=== PATIENT | male | born 1965 | race Caucasian/White ===

== ENCOUNTER 2018-07-31 18:24 | Emergency (ER) | payer BC ==
[2018-07-31 18:31] VITALS: TEMP 98.5
[2018-07-31] MEDS ORDERED: KETOROLAC 30 MG/ML 1 ML VIAL IM STA (18:42)
[2018-07-31] MEDS ORDERED: HYDROcodone/APAP 5-325MG 1 EACH TAB PO STA (18:42)
--- NOTE | 2018-07-31 18:55 | ED ---
Extremity Problem HPI - General Chief complaint: Extremity Problem,Nontraumatic Stated complaint: PAIN IN RT ARM Time Seen by Provider: 07/31/18 18:33 Source: patient Mode of arrival: ambulatory Limitations: no limitations - History of Present Illness Initial comments: 52-year-old male patient presents to the emergency department today for evaluation of right elbow pain. Patient states the pain started 3 hours ago and a drive back home from [place]. Patient states that the pain is intense and located mostly in the elbow however does radiate down to the fingers and up to the shoulder. Patient states the pain worsens significantly with movement of the elbow. He denies any numbness or tingling to the arm. Denies any known injury. [place]. Denies any fevers or chills. Denies any recent illness. Patient denies any recent rash, shortness breath, chest pain, abdominal pain, nausea, vomiting, diarrhea, constipation, back pain, dizziness, weakness, hematuria, dysuria, urinary urgency, urinary frequency, headache, visual changes, or any other complaints. - Related Data Home Medications Medication Instructions Recorded Confirmed Multivitamins, Thera [Multivitamin] 1 tab PO DAILY 05/20/16 07/31/18 amLODIPine [Norvasc] 10 mg PO DAILY 05/20/16 07/31/18 Aspirin EC [Ecotrin Low Dose] 81 mg PO DAILY PRN 07/31/18 07/31/18 Previous Rx's Medication Instructions Recorded Ibuprofen [Motrin] 600 mg PO Q8HR PRN #30 tab 07/31/18 Allergies Allergy/AdvReac Type Severity Reaction Status Date / Time No Known Allergies Allergy Verified 07/31/18 18:43 Review of Systems ROS Statement: Those systems with pertinent positive or pertinent negative responses have been documented in the HPI. ROS Other: All systems not noted in ROS Statement are negative. Past Medical History Past Medical History: Coronary Artery Disease (CAD), Hypertension History of Any Multi-Drug Resistant Organisms: None Reported Past Surgical History: Hernia Repair Past Psychological History: No Psychological Hx Reported Smoking Status: Never smoker Past Alcohol Use History: Daily Past Drug Use History: None Reported General Exam Limitations: no limitations General appearance: alert, in no apparent distress, other (This is a well- developed, well-nourished adult male patient in no acute distress. Vital signs upon presentation are temperature 98.5F, pulse 84, respirations 18, blood pressure 173/85, pulse ox 96% on room air.) Eye exam: Present: normal appearance, PERRL, EOMI. Absent: scleral icterus, conjunctival injection, periorbital swelling ENT exam: Present: normal exam, normal oropharynx, mucous membranes moist Respiratory exam: Present: normal lung sounds bilaterally. Absent: respiratory distress, wheezes, rales, rhonchi, stridor Cardiovascular Exam: Present: regular rate, normal rhythm, normal heart sounds. Absent: systolic murmur, diastolic murmur, rubs, gallop, clicks Extremities exam: Present: tenderness (Right posterior elbow tenderness), normal capillary refill, other (No erythema noted. Radial pulses 2+ and equal bilaterally. Cap refills less than 3 seconds. Skin is pink, warm, dry.). Absent: normal inspection, full ROM (Patient unable to fully extend the right arm at the elbow), pedal edema, joint swelling, calf tenderness Neurological exam: Present: alert, oriented X3, CN II-XII intact Psychiatric exam: Present: normal affect, normal mood Skin exam: Present: warm, dry, intact, normal color. Absent: rash Course Vital Signs 07/31/18 07/31/18 18:26 20:59 Temperature 98.5 F Pulse Rate 84 85 Respiratory 18 16 Rate Blood Pressure 173/85 140/85 O2 Sat by Pulse 96 95 Oximetry Procedures - Orthopedic Splinting/Casting Injury #1 Side: right Upper Extremity Injury Location: long arm, elbow Upper Extremity Immobilizer: posterior splint, Artur wrap Additional Comments: neurovascular status intact after splint application. Skin to the hand is pink , warm, dry. Cap refills less than 3 seconds. Radial pulses 2+ and equal bilaterally. Medical Decision Making - Medical Decision Making 52-year-old male patient presents to the emergency department today for evaluation of right elbow pain started approximately 3 hours ago. Patient reported radicular type pain extending from the elbow to the shoulder and down to the hand. Neurovascular status is intact. There is mild swelling but no erythema. There is some mild joint tenderness. X-ray was obtained and showed no acute abnormalities. Patient is unable to fully extend the elbow. He is afebrile vital signs are stable. He requested EKG, this did show left bundle branch block which is not a new finding for this patient. I did place the patient in a long-arm OCL splint for comfort and support. He'll be discharged to follow-up with orthopedics for further evaluation. There is concern for bursitis I did start anti-inflammatory medication. Return parameters were discussed in detail. He verbalizes understanding and agrees with this plan. - EKG Data -: EKG Interpreted by Me EKG Comments: EKG obtained in 194 shows normal sinus rhythm with a left bundle branch block. Ventricular rate is 81, VT interval 172, QRS duration 132. QT 394, QTC 457. There are no previous EKGs on file to compare, however patient does report a history of left bundle branch block. - Radiology Data Radiology results: report reviewed, image reviewed 3 views of the elbow are obtained. Report was reviewed in its entirety. Impression by Dr. Gee shows normal 3 view right elbow. Disposition Clinical Impression: Right elbow pain, Bursitis Disposition: HOME SELF-CARE Condition: Good Instructions (If sedation given, give patient instructions): Elbow Bursitis (ED ) Additional Instructions: Keep splint in place until follow-up with orthopedics. Take medication as directed. Follow-up with orthopedics for recheck as soon as possible. Return to the emergency department immediately for any new, worsening, or concerning symptoms Prescriptions: Ibuprofen [Motrin] 600 mg PO Q8HR PRN #30 tab PRN Reason: Pain Is patient prescribed a controlled substance at d/c from ED?: No Referrals: Jamar Hamilton MD [Primary Care Provider] - 1-2 days Blade Patel DO [Doctor of Osteopathic Medicine] - 1-2 days Time of Disposition: 20:48
[2018-07-31] MEDS ORDERED: FAMOTIDINE 20 MG TAB PO STA (19:31)
--- NOTE | 2018-07-31 20:10 | XR ---
EXAMINATION TYPE: XR elbow complete RT DATE OF EXAM: 07/31/2018 COMPARISON: None HISTORY: Right elbow pain TECHNIQUE: Three-view right elbow FINDINGS: Radius aligns normally with the humerus. No acute fractures are evident. No elevation of th e anterior fat pad is evident. No elevation of posterior fat pad is evident. Follow-up exams can be performed 7-10 days from acute trauma for continued pain. IMPRESSION: 1. Normal three-view right elbow
[2018-07-31] MEDS ORDERED: ACET/COD 300 MG/30 MG STARTER PACK 6 TAB BTL PO STA (20:54)
[2018-07-31 21:01] VITALS: BP 140/85; PULSE 85; RESP 16
== END 2018-07-31 20:59 | disposition home or self-care (01) ==
LOC: EC 18:24
DX: M71.521 Other bursitis, not elsewhere classified, right elbow (principal); I44.7 Left bundle-branch block, unspecified; I25.10 Atherosclerotic heart disease of native coronary artery without angina pectoris; I10 Essential (primary) hypertension; Z79.899 Other long term (current) drug therapy
CPT/HCPCS: 93005; 73080; 99283; 29105; 96372; J1885

== ENCOUNTER → 2020-05-20 | Outpatient (CLI) | payer BC ==
--- NOTE | 2020-05-20 14:54 | MR ---
EXAMINATION TYPE: MR knee LT wo con DATE OF EXAM: 05/20/2020 COMPARISON: Radiograph 04/23/2020 HISTORY: 54-year-old male M25.562, left knee pain TECHNIQUE: Multiplanar, multisequence imaging of the left knee is performed without IV contrast. FINDINGS: The ACL, PCL, MCL, and LCL complex are intact. There is an oblique tear involving the posterior horn and body of the medial meniscus. Moderate focal irregular cartilage loss involving the mid weightbearing aspect of the medial femoral condyle (measu ring 1.0 cm wide and 0.8 cm AP) with underlying degenerative subchondral signal change. The lateral meniscus is intact. Overall lateral compartment articular cartilage volume is maintained. Moderate to severe, full-thickness cartilage loss along the superior half of the mid patella and mode rate irregular cartilage loss along the medial patellar facet. Physiologic joint fluid. Small elongated Jean Baptiste's cyst is noted extending superiorly measuring up to 3 .9 cm long. Extensor mechanism is intact. Nonspecific mild anterior soft tissue swelling. Trace effusion within t he deep infrapatellar bursa. Normal popliteal artery anatomy and muscle bulk. No suspicious bone marrow replacement. IMPRESSION: 1. Oblique tear involving the posterior horn and body of the medial meniscus. 2. Moderate focal irregular cartilage loss involving the mid weightbearing aspect of the medial femor al condyle (10 x 8 mm). 3. Moderate overall patellofemoral compartment osteoarthrosis with areas of high-grade cartilage loss along the superior half of the mid patella. 4. Small Jean Baptiste's cyst tracking superiorly.
== END | disposition home or self-care (01) ==
LOC: RADMRIMAIN 11:07
PROVIDERS: ATTEND Orthopaedic Surgery
DX: S83.242A Other tear of medial meniscus, current injury, left knee, initial encounter (principal); M17.12 Unilateral primary osteoarthritis, left knee; M25.862 Other specified joint disorders, left knee; M71.22 Synovial cyst of popliteal space [Baker], left knee

== ENCOUNTER → 2020-08-19 | Outpatient (CLI) | payer BC ==
[2020-08-19 14:36] LABS: Basophils % (A) 1 %; Eosinophils # (A) 0.2 k/uL (0-0.7); Eosinophils % (A) 3 %; HCT 45.3 % (39.0-53.0); HGB 15.6 gm/dL (13.0-17.5); Lymphocytes # (A) 2.8 k/uL (1.0-4.8); Lymphocytes % (A) 35 %; MCH 31.5 pg (25.0-35.0); MCHC 34.3 g/dL (31.0-37.0); MCV 91.9 fL (80.0-100.0); Monocytes # (A) 0.5 k/uL (0-1.0); Monocytes % (A) 6 %; Neutrophils # (A) 4.4 k/uL (1.3-7.7); Neutrophils % (A) 54 %; Platelet Count 312 k/uL (150-450); RBC 4.94 m/uL (4.30-5.90); RDW 12.3 % (11.5-15.5)
[2020-08-19 14:46] LABS: Potassium 4.5 mmol/L (3.5-5.1)
== END ==
LOC: LABPAT 13:50
PROVIDERS: ATTEND Orthopaedic Surgery
DX: Z01.812 Encounter for preprocedural laboratory examination (principal); M23.92 Unspecified internal derangement of left knee
CPT/HCPCS: 36415; 80051; 85025; 93005

== ENCOUNTER 2020-08-29 06:19 | Day surgery (SDC) | payer BC ==
[2020-08-22 15:25] VITALS: BMI 29.5
--- NOTE | 2020-08-28 18:16 | HP ---
HISTORY AND PHYSICAL DATE OF SURGERY: 08/29/2020 Jose Antonio Day is a 54-year-old gentleman seen with progressive left knee pain. Options were discussed. He elected to proceed with arthroscopy. Consent was obtained. PAST MEDICAL HISTORY: Hypertension. PAST SURGICAL HISTORY: Knee arthroscopy. DAILY MEDICATIONS: Amlodipine. ALLERGIES: NONE. SOCIAL HISTORY: He denies tobacco use. PHYSICAL EVALUATION OF THE LEFT KNEE: Range of motion zero to 130. Mild effusion. Tenderness, medial joint line. Positive medial Elaina's. Ligaments stable. Hip rotation without pain. Distal neurovascular exam intact. RADIOGRAPHS: Left knee radiographs reveal mild osteoarthritis. MRI of left knee revealed medial meniscal tear and osteoarthritis. IMPRESSION: 1. Internal derangement of left knee with medial meniscal tear. 2. Left knee osteoarthritis. 3. Hypertension. PLAN: Left knee arthroscopy with partial meniscectomy and debridement. MMODL / IJN: [id number] /
[~2020-08-29 06:19] MED LIST: DEXAMETHASONE SOD PHOSPHATE 4 MG/ML 1 ML VIAL IV ONE; LACTATED RINGERS 1,000 ML IV SCH; LIDOCAINE 1% (10MG/ML) FOR IV START INTRADERMA PRN; ONDANSETRON 4 MG/2 ML VIAL IVP ONE
[2020-08-29] MEDS ORDERED: ONDANSETRON 4 MG/2 ML VIAL ONE (06:59)
[2020-08-29] MEDS ORDERED: SCOPOLAMINE 1.5MG/72HR PATCH TRANSDERM ONE (07:10)
[2020-08-29] MEDS ORDERED: PROPOFOL 10 MG/ML 20 ML VIAL IV ONE (07:23)
[2020-08-29] MEDS ORDERED: MIDAZOLAM 2 MG/2 ML VIAL ONE (07:23)
[2020-08-29] MEDS ORDERED: LIDOCAINE 1% INJ 10MG/ML (20 ML MDV) ONE (07:23)
[2020-08-29] MEDS ORDERED: fentaNYL (PF) 50 MCG/ML 2 ML AMP ONE (07:23)
[2020-08-29] MEDS ORDERED: KETOROLAC 15 MG/ML 1 ML VIAL ONE (07:23)
[2020-08-29] MEDS ORDERED: BUPIVACAINE (PF) 0.25% 30 ML VIAL SQ ONE ×2 (07:45→07:59)
[2020-08-29] MEDS ORDERED: HYDROmorphone 0.5 MG/0.5 ML SYRINGE IVP ONE ×2 (08:15→08:25)
--- NOTE | 2020-08-29 08:16 | P.OP ---
Date of Procedure: 08/29/20 Preoperative Diagnosis: Internal derangement left Postoperative Diagnosis: 1. Tear medial meniscus left knee 2. Grade 2 chondromalacia medial femoral condyle left knee 3. Reactive synovitis medial, lateral and suprapatellar compartments left knee Procedure(s) Performed: 1. Arthroscopic partial medial meniscectomy left knee 2. Arthroscopic chondroplasty medial femoral condyle left knee 3. Arthroscopic partial synovectomy medial, lateral and suprapatellar compartments left knee Anesthesia: ARMANDOA, local Surgeon: Blade Patel Estimated Blood Loss (ml): 7 Pathology: none sent Condition: stable Disposition: PACU Indications for Procedure: 54-year-old patient seen with progressive left knee pain. After having treatment options discussed, he elected to proceed with arthroscopy. Operative Findings: See description of procedure Description of Procedure: Patient was taken to the operative suite. Patient underwent a general anesthetic by the department of anesthesia. Patient was given preoperative antibiotics. The left lower extremity was placed in a well-padded arthroscopic leg loza. The left leg was prepped and draped in the normal sterile orthopedic fashion. A lateral parapatellar and suprapatellar incision was made. Trochars were inserted. Arthroscopy was initiated. Suprapatellar pouch revealed diffuse thick reactive synovitis. The patellofemoral joint appeared to articulate congruently. There was no chondromalacia present. The scope was guided into the medial gutter. No loose bodies or plica were identified. The scope was then guided into the medial compartment. A medial parapatellar incision was made. Trocar inserted followed by probe. There was a complex tear posterior horn medial meniscus which extended into the midbody area. There were grade 2 chondral malacia changes medial femoral condyle with some small osteochondral flap tears present. There was thick reactive synovitis anteriorly. I performed a partial medial meniscectomy getting down to stable meniscal tissue. I performed a chondroplasty of the medial femoral condyle getting down to stable osteochondral tissue. I performed a partial synovectomy decompressing the thick reactive synovitis. The residual meniscus was stable. The residual osteochondral surface was stable. There was good decompression of the synovitis. Scope and probe were then guided into the intercondylar notch. Cruciates were identified, probed and found to be stable. The scope and probe were then guided into lateral compartment. Lateral meniscus was probed and found to be stable. There was no significant chondromalacia present. There was some reactive synovitis anteriorly. I introduced a motorized shaver and performed a partial synovectomy. Shaver was removed. There was good decompression of the synovitis. The scope was in guided back into the suprapatellar compartment. I introduced a motorized shaver into the suprapatellar compartment. I debrided some piecemeal fragments of meniscus I encountered. I performed a partial synovectomy decompressing the reactive synovitis. The shaver was removed. There was good decompression of the synovitis. Instruments were now removed from the joint. The joint was infiltrated with .25% Marcaine. Steri-Strips were applied to the portal sites. Sterile dressings were applied. The patient was placed into a KATHI hose. No tourniquet was utilized. The patient was awakened, transferred to a bed and taken to recovery stable satisfactory condition.
[2020-08-29 08:19] VITALS: TEMP 98.5
[2020-08-29] MEDS ORDERED: HYDROcodone/APAP 5-325MG 1 EACH TAB PO ONE (09:02)
[2020-08-29 09:03] VITALS: RESP 20
[2020-08-29] MEDS ORDERED: HYDROcodone/APAP 5-325MG 1 EACH TAB ONE (09:03)
[2020-08-29 09:48] VITALS: BP 133/74; PULSE 68
== END 2020-08-29 10:03 | disposition home or self-care (01) ==
LOC: OR 06:19
PROVIDERS: ATTEND Orthopaedic Surgery
DX: S83.232A Complex tear of medial meniscus, current injury, left knee, initial encounter (principal); M94.262 Chondromalacia, left knee; M65.862 Other synovitis and tenosynovitis, left lower leg; M17.12 Unilateral primary osteoarthritis, left knee; I10 Essential (primary) hypertension; Z79.899 Other long term (current) drug therapy; X58.XXXA Exposure to other specified factors, initial encounter
CPT/HCPCS: 29881; 29876; J2250; J1100; J0690; J2405; J2001; J3010; J1885; J2704; J1170

== ENCOUNTER → 2022-03-10 | Outpatient (CLI) | payer BC ==
--- NOTE | 2022-03-10 10:24 | CA ---
Exercise Stress Test Report Name: Jose Antonio Day Exam Date: 03/10/2022 09:02 Exam Location: [facility] Ht (in): 66 Wt (lb): 180 BSA: 1.91 Ordering Phys: Maria E Ruiz MD Referring Phys: Martha Bloom Technologist: August Diggs Age: 56 Gender: M : 1965 Procedure CPT: Indications: I44.7 LEFT BUNDLE-BRANCH BLOCK, UNSPECIFIED ICD-10 Codes: Patient History: Medications: AMLODIPINE Meds past 24 hrs: Pretest Chest Pain: STRESS TEST Dominic Protocol Exercise Duration (min:sec): 12:[address] Depressions (mm): Angina Score: Meraz Score: Resting HR (bpm): 62 Peak HR (bpm): 161 Resting BP (mmHg): 138 / 76 Peak BP (mmHg): 216 / 114 MPHR: 163 Target HR: 139 % MPHR: 99 METS: 13.0 Total Dose: Peak Dose: Atropine: Double Product: 74003 BP Response: Stress Termination: Reached target heart rate Stress Symptoms: NO SYMPTOMS Stress Summary: ECG ANALYSIS Resting ECG: Normal sinus rhythm with left bundle branch block Stress ECG: Patient exercised on Dominic protocol for a total of 12 and half minutes achieving 14 METs 85% of predicted maximal heart rate without chest pain or diagnostic ST segment depression CONCLUSIONS Excellent exercise tolerance Inconclusive stress test secondary to left bundle branch block Dr. Gabriel Munson MD (Electronically Signed) Final Date: 10 March 2022 10:23
== END | disposition home or self-care (01) ==
LOC: RADNMMAIN 08:28
PROVIDERS: ATTEND Family Medicine
DX: I44.7 Left bundle-branch block, unspecified (principal); R94.31 Abnormal electrocardiogram [ECG] [EKG]; Z68.30 Body mass index [BMI] 30.0-30.9, adult
CPT/HCPCS: 93017

== ENCOUNTER 2023-07-08 22:18 | Emergency (ER) | payer OTHER ==
--- NOTE | 2023-07-08 23:02 | ED ---
Abdominal Pain HPI - General Chief Complaint: Recheck/Abnormal Lab/Rx Stated Complaint: Abdominal Pain Time Seen by Provider: 07/08/23 23:01 Source: patient Mode of arrival: ambulatory Limitations: no limitations - History of Present Illness Initial Comments: 57-year-old male presented to the ED with a chief complaint of abdominal pain. Patient states 2 days ago, onset of left lower abdominal pain. Since then, patient notes he has not been able to have a full bowel movement either. No nausea or vomiting. No chest pain shortness of breath. No changes in urinary habits. No fever or chills. No other complaints. - Related Data Home Medications Medication Instructions Recorded Confirmed Multivitamins, Thera [Multivitamin] 1 tab PO DAILY 05/20/16 08/29/20 amLODIPine [Norvasc] 10 mg PO DAILY 05/20/16 08/29/20 Ascorbic Acid [Vitamin C] 500 mg PO DAILY 08/22/20 08/29/20 Cholecalciferol [Vitamin D3 (25 25 mcg PO DAILY 08/22/20 08/29/20 Mcg = 1000 Iu)] Thiamine [Vitamin B-1] 50 mg PO DAILY 08/22/20 08/29/20 Previous Rx's Medication Instructions Recorded HYDROcodone/APAP 5-325MG [[place] 1 tab PO Q6HR PRN 7 Days #28 tab 08/29/20 5-325] Amoxic-Pot Clav 875-125Mg 1 tab PO Q12HR 7 Days #14 tab 07/09/23 [Augmentin 875-125] Allergies Allergy/AdvReac Type Severity Reaction Status Date / Time No Known Allergies Allergy Verified 07/08/23 22:30 Review of Systems ROS Statement: Those systems with pertinent positive or pertinent negative responses have been documented in the HPI. ROS Other: All systems not noted in ROS Statement are negative. Past Medical History Past Medical History: Coronary Artery Disease (CAD), Hypertension History of Any Multi-Drug Resistant Organisms: None Reported Past Surgical History: Hernia Repair Past Psychological History: No Psychological Hx Reported Smoking Status: Never smoker Past Alcohol Use History: Daily Past Drug Use History: None Reported General Exam Limitations: no limitations General appearance: alert, in no apparent distress Neck exam: Present: normal inspection Respiratory exam: Present: normal lung sounds bilaterally Cardiovascular Exam: Present: regular rate, normal rhythm GI/Abdominal exam: Present: soft (TTP in the LLQ. No rebound guarding or rigidity.) Neurological exam: Present: alert, oriented X3 Skin exam: Present: warm, dry Course Vital Signs 07/08/23 07/08/23 07/09/23 22:24 23:00 00:00 Temperature 98.4 F Pulse Rate 102 H 72 73 Respiratory 20 18 18 Rate Blood Pressure 155/88 179/92 176/92 O2 Sat by Pulse 97 98 95 Oximetry 07/09/23 01:13 Temperature Pulse Rate 78 Respiratory 18 Rate Blood Pressure 139/69 O2 Sat by Pulse 98 Oximetry Medical Decision Making - Medical Decision Making Was pt. sent in by a medical professional or institution (, PA, WHOLESALE ACCOUNT EXECUTIVE, urgent care, hospital, or [place] health care facility...) When possible be specific @ -No Did you speak to anyone other than the patient for history (EMS, parent, family, police, friend...)? What history was obtained from this source @ -No Did you review nursing and triage notes (agree or disagree)? Why? @ -I reviewed and agree with nursing and triage notes Were old charts reviewed (outside hosp., previous admission, EMS record, old EKG, old radiological studies, urgent care reports/EKG's, [place] health care facility records)? Report findings @ -No old charts were reviewed Differential Diagnosis (chest pain, altered mental status, abdominal pain women, abdominal pain men, vaginal bleeding, weakness, fever, dyspnea, syncope, headac he, dizziness, GI bleed, back pain, seizure, CVA, palpatations, mental health, musculoskeletal)? @ -Differential Musculoskeletal Muscular strain, contusion, ligament sprain, fracture, arthritis, septic arthritis, bursitis, cellulitis, muscle spasm, nerve compression, DVT, arterial occlusion, herpes zoster, electrolyte abnormality, tumor.... This is not meant to be in all inclusive list EKG interpreted by me (3pts min.). @ -None X-rays interpreted by me (1pt min.). @ -None done CT interpreted by me (1pt min.). @ -CT abdomen and pelvis interpreted by me showing evidence of diverticulitis. U/S interpreted by me (1pt. min.). @ -None done What testing was considered but not performed or refused? (CT, X-rays, U/S, labs)? Why? @ -None What meds were considered but not given or refused? Why? @ -None Did you discuss the management of the patient with other professionals (professionals i.e. , PA, WHOLESALE ACCOUNT EXECUTIVE, lab, RT, psych nurse, manager social media, emergency room tech, teacher, loan officer assistant, caseworker intake)? Give summary @ -No Was smoking cessation discussed for >3mins.? @ -No Was critical care preformed (if so, how long)? @ -No Were there social determinants of health that impacted care today? How? (Homelessness, low income, unemployed, alcoholism, drug addiction, transportation, low edu. Level, literacy, decrease access to med. care, residential, rehab)? @ -No Was there de-escalation of care discussed even if they declined (Discuss DNR or withdrawal of care, Hospice)? DNR status @ -No What co-morbidities impacted this encounter? (DM, HTN, Smoking, COPD, CAD, Cancer, CVA, ARF, Chemo, Hep., AIDS, mental health diagnosis, sleep apnea, morbid obesity)? @ -None Was patient admitted / discharged? Hospital course, mention meds given and route, prescriptions, significant lab abnormalities, going to OR and other pertinent info. @ -Discharge 57-year-old male presenting to the ED with a few days of left lower quadrant pain. No other symptoms at this time.Laboratory studies reviewed. Labs show a CBC of 13.3. Chemistry panel unremarkable. UA shows no evidence of infection. Computed tomography scan does show evidence of diverticulitis however no evidence of abscess formation or phlegmon. He'll be discharged home with prescription for antibiotics. Provided dose of Augmentin here in the ED. Provided referral to see GI. Discussed return precautions with patient and who verbalizes agreement. Undiagnosed new problem with uncertain prognosis? @ -No Drug Therapy requiring intensive monitoring for toxicity (Heparin, Nitro, Insulin, Cardizem)? @ -No Were any procedures done? @ -No Diagnosis/symptom? @ -Diverticulitis Acute, or Chronic, or Acute on Chronic? @ -Acute Uncomplicated (without systemic symptoms) or Complicated (systemic symptoms)? @ -Uncomplicated Side effects of treatment? @ -No Exacerbation, Progression, or Severe Exacerbation? @ -No Poses a threat to life or bodily function? How? (Chest pain, [place], [place], pneumonia, PE, COPD, DKA, ARF, appy, cholecystitis, CVA, Diverticulitis, Homicidal, Suicidal, threat to staff... and all critical care pts) @ -No - Lab Data Result diagrams: 07/08/23 23:21 07/08/23 23:21 Lab Results 07/08/23 07/08/23 07/08/23 Range/Units 23:21 23:21 23:59 WBC 13.3 H (3.8-10.6) k/uL RBC 4.67 (4.30-5.90) m/uL Hgb 14.8 (13.0-17.5) gm/dL Hct 42.1 (39.0-53.0) % MCV 90.1 (80.0-100.0) fL MCH 31.8 (25.0-35.0) pg MCHC 35.3 (31.0-37.0) g/dL RDW 13.0 (11.5-15.5) % Plt Count 262 (150-450) k/uL MPV 7.6 Neutrophils % 79 % Lymphocytes % 12 % Monocytes % 7 % Eosinophils % 1 % Basophils % 0 % Neutrophils # 10.5 H (1.3-7.7) k/uL Lymphocytes # 1.5 (1.0-4.8) k/uL Monocytes # 0.9 (0-1.0) k/uL Eosinophils # 0.1 (0-0.7) k/uL Basophils # 0.0 (0-0.2) k/uL Sodium 135 L (137-145) mmol/L Potassium 4.2 (3.5-5.1) mmol/L Chloride 103 (98-107) mmol/L Carbon Dioxide 25 (22-30) mmol/L Anion Gap 7 mmol/L BUN 13 (9-20) mg/dL Creatinine 0.69 (0.66-1.25) mg/dL Est GFR (CKD-EPI)AfAm >90 (>60 ml/min/1.73 sqM) Est GFR (CKD-EPI)NonAf >90 (>60 ml/min/1.73 sqM) Glucose 116 H (74-99) mg/dL Calcium 9.5 (8.4-10.2) mg/dL Total Bilirubin 0.8 (0.2-1.3) mg/dL AST 21 (17-59) U/L ALT 22 (4-49) U/L Alkaline Phosphatase 85 (38-126) U/L Total Protein 7.3 (6.3-8.2) g/dL Albumin 4.5 (3.5-5.0) g/dL Amylase 61 (30-110) U/L Lipase 39 (23-300) U/L Urine Color Colorless Urine Appearance Clear (Clear) Urine pH 6.0 (5.0-8.0) Ur Specific [place] 1.015 (1.001-1.035) Urine Protein Negative (Negative) Urine Glucose (UA) Negative (Negative) Urine Ketones Negative (Negative) Urine Blood Negative (Negative) Urine Nitrite Negative (Negative) Urine Bilirubin Negative (Negative) Urine Urobilinogen <2.0 (<2.0) mg/dL Ur Leukocyte Esterase Negative (Negative) Disposition Clinical Impression: Diverticulitis Disposition: HOME SELF-CARE Condition: Good Instructions (If sedation given, give patient instructions): Diverticulitis (ED), Diverticulitis Diet (ED), Diverticulosis (ED) Additional Instructions: Please return to the Emergency Department if symptoms worsen or any other concerns. Please follow up with your PCP. Prescriptions: Amoxic-Pot Clav 875-125Mg [Augmentin 875-125] 1 tab PO Q12HR 7 Days #14 tab Is patient prescribed a controlled substance at d/c from ED?: No Referrals: Maria E Ruiz MD [Primary Care Provider] - 1-2 days Janice uMnson MD [STAFF PHYSICIAN] - 1-2 days Time of Disposition: 02:49
[2023-07-08] MEDS ORDERED: SODIUM CHLORIDE 0.9% 500 ML 500 ML IV STA (23:03)
[2023-07-08] MEDS ORDERED: KETOROLAC 15 MG/ML 1 ML VIAL IVP STA (23:22)
[2023-07-08 23:25] LABS: Basophils % (A) 0 %; Eosinophils # (A) 0.1 k/uL (0-0.7); Eosinophils % (A) 1 %; HCT 42.1 % (39.0-53.0); HGB 14.8 gm/dL (13.0-17.5); Lymphocytes # (A) 1.5 k/uL (1.0-4.8); Lymphocytes % (A) 12 %; MCH 31.8 pg (25.0-35.0); MCHC 35.3 g/dL (31.0-37.0); MCV 90.1 fL (80.0-100.0); Mean Platelet Volume 7.6; Monocytes # (A) 0.9 k/uL (0-1.0); Monocytes % (A) 7 %; Neutrophils # (A) 10.5 k/uL (1.3-7.7); Neutrophils % (A) 79 %; Platelet Count 262 k/uL (150-450); RBC 4.67 m/uL (4.30-5.90); WBC 13.3 k/uL (3.8-10.6)
[2023-07-08 23:51] VITALS: RESP 18
[2023-07-09] LABS: ALT 22 U/L (4-49); AST 21 U/L (17-59); African American GFR (CKD) >90 (>60 ml/min/1.73 sqM); Albumin 4.5 g/dL (3.5-5.0); Alkaline Phosphatase 85 U/L (38-126); Amylase 61 U/L (30-110); Anion Gap 7 mmol/L; Blood Urea Nitrogen 13 mg/dL (9-20); Calcium 9.5 mg/dL (8.4-10.2); Carbon Dioxide 25 mmol/L (22-30); Chloride 103 mmol/L (98-107); Glucose 116 mg/dL (74-99); Lipase 39 U/L (23-300); Non-African American GFR(CKD) >90 (>60 ml/min/1.73 sqM); Potassium 4.2 mmol/L (3.5-5.1); Sodium 135 mmol/L (137-145); Total Bilirubin 0.8 mg/dL (0.2-1.3); Total Protein 7.3 g/dL (6.3-8.2)
[2023-07-09 00:48] LABS: Appearance,Urine Clear (Clear); Bilirubin,Urine Negative (Negative); Blood,Urine Negative (Negative); Color,Urine Colorless; Glucose,Urine (UA) Negative (Negative); Ketones,Urine Negative (Negative); Leukocyte Esterase,Urine Negative (Negative); Nitrite,Urine Negative (Negative); Protein,Urine Negative (Negative); Specific Gravity,Urine 1.015 (1.001-1.035); Urobilinogen,Urine <2.0 mg/dL (<2.0)
--- NOTE | 2023-07-09 02:26 | CT ---
EXAM: CT Abdomen and Pelvis With Intravenous Contrast CLINICAL HISTORY: LLQ pain TECHNIQUE: Axial computed tomography images of the abdomen and pelvis with intravenous contrast. CTDI is 22 mGy and DLP is 1110 mGy-cm. This CT exam was performed using one or more of the following dose reduction techniques: automated exposure control, adjustment of the mA and/or kV according to patient size, and/or use of iterative reconstruction technique. COMPARISON: No relevant prior studies available. FINDINGS: Lung bases: Normal dependent atelectasis. ABDOMEN: Liver: Unremarkable. No mass. Gallbladder and bile ducts: Unremarkable. No calcified stones. No ductal dilation. Pancreas: Unremarkable. No mass. No ductal dilation. Spleen: Unremarkable. No splenomegaly. Adrenals: Unremarkable. No mass. Kidneys and ureters: Unremarkable. No solid mass. No hydronephrosis. Stomach and bowel: Fat-containing left inguinal hernia. No obstruction or ileus. Distal left and sigmoid colon diverticulosis with wall thickening and surrounding infiltration consistent with acute diverticulitis. No associated focal abscess or free intraperitoneal gas. No free fluid. PELVIS: Appendix: No findings to suggest acute appendicitis. Bladder: Partially contracted with nonspecific wall thickening. Partial herniation of the urinary bladder into the left inguinal canal. No mass. Reproductive: Unremarkable as visualized. ABDOMEN and PELVIS: Bones/joints: No acute fracture. Soft tissues: Unremarkable. Vasculature: Atherosclerotic vascular calcifications. No abdominal aortic aneurysm. Lymph nodes: Unremarkable. No enlarged lymph nodes. IMPRESSION: Distal left and sigmoid colon diverticulosis with wall thickening and surrounding infiltration consistent with acute diverticulitis. Partially contracted with nonspecific wall thickening. Partial herniation of the urinary bladder into the left inguinal canal.
[2023-07-09] MEDS ORDERED: AMOXIC-POT CLAV 875-125MG 1 EACH TAB PO STA (02:35)
[2023-07-09] MEDS ORDERED: MORPHINE SULFATE 4 MG/ML SYRINGE IVP STA (02:59)
[2023-07-09 03:19] VITALS: BP 148/75; PULSE 76; TEMP 98.6
== END 2023-07-09 03:16 | disposition home or self-care (01) ==
LOC: EC 22:18
DX: K57.32 Diverticulitis of large intestine without perforation or abscess without bleeding (principal); I10 Essential (primary) hypertension; I25.10 Atherosclerotic heart disease of native coronary artery without angina pectoris; Z79.899 Other long term (current) drug therapy
CPT/HCPCS: 80053; 82150; 83690; 85025; 99284; 96374; 96375; 96361; J1885; 36415; 74177; 81003

== ENCOUNTER → 2024-09-06 | Outpatient (CLI) | payer OTHER ==
[2024-09-06 16:00] LABS: Basophils # (A) 0.07 X 10*3/uL (0.00-0.10); Basophils % (A) 0.6 %; Eosinophils # (A) 0.13 X 10*3/uL (0.04-0.35); Eosinophils % (A) 1.2 %; HGB 15.6 g/dL (13.0-17.0); Lymphocytes # (A) 2.66 X 10*3/uL (0.90-5.00); Lymphocytes % (A) 23.6 %; MCH 30.7 pg (27.0-32.0); MCHC 33.9 g/dL (32.0-37.0); MCV 90.6 FL (80.0-97.0); Mean Platelet Volume 9.5 FL (9.5-12.2); Monocytes # (A) 0.79 X 10*3/uL (0.20-1.00); NRBC Per 100 WBC 0 X 10*3/uL (0.00-0.01); Neutrophils # (A) 7.58 X 10*3/uL (1.80-7.70); Neutrophils % (A) 67.2 %; Platelet Count 345 X 10*3/uL (140-440); RBC 5.08 X 10*6/uL (4.40-5.60); RDW 12.7 % (11.5-14.5); WBC 11.27 X 10*3/uL (4.50-10.00)
== END | disposition home or self-care (01) ==
LOC: LABPAT 11:43
PROVIDERS: ATTEND Surgery
DX: Z01.818 Encounter for other preprocedural examination (principal)
CPT/HCPCS: 85025; 93005

== ENCOUNTER → 2024-09-18 | Outpatient (CLI) | payer OTHER | END | disposition home or self-care (01) | LOC: LABPAT 11:25 | PROVIDERS: ATTEND Surgery | DX: Z01.812 Encounter for preprocedural laboratory examination (principal); K40.90 Unilateral inguinal hernia, without obstruction or gangrene, not specified as recurrent | CPT/HCPCS: 86850; 86900; 86901 ==

== ENCOUNTER 2024-09-22 06:11 | Day surgery (SDC) | payer OTHER ==
[2024-09-18 10:28] VITALS: BMI 31.1
[~2024-09-22 06:11] MED LIST changes: -DEXAMETHASONE SOD PHOSPHATE 4 MG/ML 1 ML VIAL IV ONE; -LACTATED RINGERS 1,000 ML IV SCH; +MIDAZOLAM 2 MG/2 ML VIAL IV PRN; -ONDANSETRON 4 MG/2 ML VIAL IVP ONE; +fentaNYL (PF) 50 MCG/ML 2 ML AMP IVP PRN
[2024-09-22 06:57] VITALS: RESP 16
[2024-09-22] MEDS: IV FLUID CONTINUATION 1,000 ML IV ONE (06:57)
[2024-09-22] MEDS: LACTATED RINGERS 1,000 ML IV SCH (06:57)
[2024-09-22] MEDS: ONDANSETRON 4 MG/2 ML VIAL IVP ONE (07:01)
[2024-09-22] MEDS: DEXAMETHASONE SOD PHOSPHATE 4 MG/ML 1 ML VIAL IV ONE (07:01)
[2024-09-22] MEDS: ACETAMINOPHEN TAB 500 MG TAB PO PRN (07:01)
[2024-09-22] MEDS: HEPARIN SODIUM,PORCINE 5,000 UNIT/ML 1 ML VIAL SQ PRN (07:16)
[2024-09-22] MEDS ORDERED: MIDAZOLAM 2 MG/2 ML VIAL ONE (07:25)
[2024-09-22] MEDS ORDERED: LIDOCAINE 1% INJ 10MG/ML (20 ML MDV) ONE (07:25)
[2024-09-22] MEDS ORDERED: GLYCOPYRROLATE 0.2 MG/ML 2 ML VIAL ONE (07:25)
[2024-09-22] MEDS ORDERED: SUCCINYLCHOLINE CHLORIDE 200 MG/10 ML VIAL IV ONE (07:25)
[2024-09-22] MEDS ORDERED: fentaNYL (PF) 50 MCG/ML 2 ML AMP ONE (07:25)
[2024-09-22] MEDS ORDERED: NEOSTIGMINE 1 MG/ML 10 ML VIAL ONE (07:25)
[2024-09-22] MEDS ORDERED: ROCURONIUM 10 MG/ML (5 ML VIAL) IV ONE (07:25)
[2024-09-22] MEDS ORDERED: PROPOFOL 10 MG/ML 20 ML VIAL IV ONE (07:25)
[2024-09-22] MEDS: SCOPOLAMINE 1 MG/72 HR PATCH TRANSDERM STA (07:26)
[2024-09-22] MEDS: TAMSULOSIN 0.4 MG CAP.ER.24H PO STA (07:29)
--- NOTE | 2024-09-22 07:30 | P.GSHP ---
History of Present Illness H&P Date: 09/22/24 Chief Complaint: Left inguinal hernia 58-year-old male last seen in the office in June. Patient with hernia left groin. Slowly enlarging over the years. History of previous right inguinal hernia many years ago. Sore at times. Past Medical History Past Medical History: Coronary Artery Disease (CAD), Hypertension Additional Past Medical History / Comment(s): Hx diverticuli. History of Any Multi-Drug Resistant Organisms: None Reported Past Surgical History: Hernia Repair Additional Past Surgical History / Comment(s): Colonoscopy. Past Anesthesia/Blood Transfusion Reactions: No Reported Reaction Smoking Status: Never smoker - Past Family History Sister(s) Family Medical History: Cancer Medications and Allergies Home Medications Medication Instructions Recorded Confirmed Type Multivitamins, Thera [Multivitamin] 1 tab PO DAILY 05/20/16 09/22/24 History amLODIPine [Norvasc] 10 mg PO QAM 05/20/16 09/22/24 History Ascorbic Acid [Vitamin C] 500 mg PO DAILY 08/22/20 09/22/24 History Cholecalciferol [Vitamin D3 (25 25 mcg PO DAILY 08/22/20 09/22/24 History Mcg = 1000 Iu)] Thiamine [Vitamin B-1] 50 mg PO DAILY 08/22/20 09/22/24 History Echinacea (Unknown Dose) 1 tab PO DAILY 09/18/24 09/22/24 History Krill Oil (Unknown Dose) 1 tab PO DAILY 09/18/24 09/22/24 History Allergies Allergy/AdvReac Type Severity Reaction Status Date / Time No Known Allergies Allergy Verified 09/22/24 06:33 Surgical - Exam Vital Signs Temp Pulse Resp BP Pulse Ox 97.2 F L 86 16 174/87 97 09/22/24 06:56 09/22/24 06:56 09/22/24 06:56 09/22/24 06:56 09/22/24 06:56 Physical exam: General: Well-developed, well-nourished HEENT: Normocephalic, sclerae nonicteric Abdomen: Nontender, nondistended, palpable moderate size left inguinal hernia reducible Extremities: No edema Neuro: Alert and oriented Assessment and Plan (1) Left inguinal hernia Narrative/Plan: 58-year-old male with left inguinal hernia. Will proceed with laparoscopic da Lara assisted repair left inguinal hernia with mesh, possible open, possible bilateral. Risks of bleeding, infection, recurrence, chronic pain, bladder and bowel injury, numbness, conversion to an open procedure, scarring, and anesthesia related complications were discussed. The correlation between hernia recurrence, obesity and smoking were reviewed in detail. The patient understands and wishes to proceed. Current Visit: Yes Status: Acute Code(s): K40.90 - UNIL INGUINAL HERNIA, W/O OBST OR GANGR, NOT SPCF RECUR OMED Code(s): 180761556
[2024-09-22] MEDS: BUPIVACAINE (PF) 0.25% 30 ML VIAL SQ ONE ×2 (07:51→09:07)
[2024-09-22] MEDS: LACTATED RINGERS 1,000 ML IV ONE (09:07)
[2024-09-22 09:19] VITALS: TEMP 97
--- NOTE | 2024-09-22 09:31 | P.OP ---
Date of Procedure: 09/22/24 Procedure(s) Performed: PREOPERATIVE DIAGNOSIS: Left inguinal hernia POSTOPERATIVE DIAGNOSIS: Moderate-sized left direct inguinal hernia PROCEDURE: My laparoscopic da Lara assisted left inguinal hernia repair with mesh SURGEON: Dr. Ruiz ANESTHESIA: General EBL: 15 cc OPERATIVE PROCEDURE DETAILS: Patient was placed in the operating table in the supine position. The patient was placed under general anesthesia. The abdomen was prepped and draped in usual sterile fashion. A small curvilinear supraumbil ical incision was made. The fascia was retracted anteriorly with Thom forceps. The Veress needle was inserted. The saline drop test was normal. Insufflation took place to 15 mmHg. An 8 mm trocar was placed into the peritoneal cavity. 2 additional 8 mm trochars were placed in the right upper quadrant and left upper quadrant under visualization. The robotic arms were then brought in and docked into place. The fenestrated bipolar was used in the left arm and the laparoscopic pete was utilized in the right arm. A 30Â° 8 mm scope was used in the up position. The peritoneal cavity was inspected. Patient had a moderate-sized direct hernia on the left seen. Scarring from the previous open repair on the right was seen. No recurrent right sided hernia was seen. The peritoneum was incised in a horizontal fashion cephalad to the internal inguinal ring. Following that careful dissection of the preperitoneal space took place. This took place using both electrocautery, sharp dissection but primarily blunt dissection. Visualization of the pubic tubercle and Michael's ligament took place medially. Full dissection took place laterally as well. The hernia sac was fully dissected. There was no visible cord lipoma penetrating through the internal inguinal ring. Once we had adequate space the [id number] Progrip mesh was advanced into the preperitoneal space and flattened out appropriately to cover all potential hernia sites. The mesh was sutured medially to the folding edge of Michael's ligament. This was performed using a absorbable 3-0 V-Loc suture. The peritoneal defect was then closed using a absorbable 2-0 VLok suture. The hernia sac was incorporated into the peritoneal closure to help prevent future recurrence. The pneumoperitoneum was then evacuated. The skin of all 3 sites was closed using a 4-0 Monocryl stitch. Skin glue was then applied. TYPE OF MESH USED: ProGrip LOCATION OF MESH: [place] preperitoneal FIXATION: Absorbable 3 OV lock PREOPERATIVE DISCUSSION ON SMOKING CESSASTION: Yes PREOPERATIVE DISCUSSION ON MORBID OBESITY: Yes PREOPERATIVE DISCUSSION ON APPROPRIATE USE OF NARCOTIC USE: Yes PREOPERATIVE EDUCATION: Multi Modal, Smoking Cessation and Weight Loss with BMI over 35. DISPOSITION: Stable to recovery room
[2024-09-22] MEDS: HYDROmorphone 0.5 MG/0.5 ML SYRINGE IVP PRN (09:55)
[2024-09-22 11:59] VITALS: BP 125/61; PULSE 75
[2024-09-22] MEDS ORDERED: ACETAMINOPHEN TAB 325 MG TAB PO SCH (12:00)
[2024-09-22] MEDS ORDERED: IBUPROFEN 600 MG TAB PO SCH (15:00)
== END 2024-09-22 12:50 | disposition home or self-care (01) ==
LOC: OR 06:11
PROVIDERS: ATTEND Surgery
DX: K40.90 Unilateral inguinal hernia, without obstruction or gangrene, not specified as recurrent (principal); I25.10 Atherosclerotic heart disease of native coronary artery without angina pectoris; I10 Essential (primary) hypertension; K21.9 Gastro-esophageal reflux disease without esophagitis; Z79.899 Other long term (current) drug therapy; Z98.890 Other specified postprocedural states
CPT/HCPCS: 49650; S2900